=== PATIENT | male | born 1990 | race Caucasian/White ===

== ENCOUNTER 2017-08-25 01:24 | Emergency (ER) | payer BC ==
[~2017-08-25] VITALS: Ht 165.1 cm; Wt 89.2 kg
[2017-08-25 01:42] LABS: HEMATOCRIT 42.7 % (38.0-50.0); MCH 29.4 PG (29.0-34.0); MCHC 33.7 G/DL (30.0-36.0); MCV 87.1 FL (86-99); MEAN PLAT.VOLUME 10.2 uM^3 (9.0-12.4); PLATELET COUNT 253 K/uL (156-360); RBC DIS.WIDTH-CV 12.4 % (11.8-14.6); RBC DIS.WIDTH-SD 39.6 % (39-53); WHITE BLOOD COUNT 8.6 K/uL (4.1-10.2)
[2017-08-25 01:47] LABS: ADD MIUA? YES; BILIRUBIN NEGATIVE; BLOOD LARGE; COLOR YELLOW ((YELLOW)); GLUCOSE (STRIP) NEGATIVE; KETONES NEGATIVE; LEUKOCYTES TRACE; NITRITE NEGATIVE; PROTEIN (STRIP) NEGATIVE; UROBILINOGEN 0.2 MG/DL (0.2-1.0)
[2017-08-25 01:57] LABS: CHLORIDE 108 mEq/L (99-109); POTASSIUM 4.1 mEq/L (3.7-5.4); SODIUM 140 mEq/L (136-147)
[2017-08-25 01:58] LABS: GLUCOSE 107 mg/dL (70-99)
[2017-08-25 02:00] LABS: ANION GAP 10 MEQ/L (2-14)
[2017-08-25 02:02] LABS: GFR ESTIMATE (CALCULATED) > 59 mL/min/
[2017-08-25 02:03] LABS: UREA NITROGEN (BUN) 14 mg/dL (9-23)
[2017-08-25 02:13] LABS: BACTERIA NONE SEEN /HPF; EPITHELIAL CELLS NONE SEEN /HPF; MUCUS 1+ /LPF; RED BLOOD CELLS TNTC /HPF (0-5); UCUL ADDED? YES
[2017-08-25] MEDS ORDERED: ZOFRAN ODT4 MG PO (03:22)
[2017-08-25] MEDS ORDERED: PERCOCET 5/31 TABLET PO (03:22)
[2017-08-25 03:49] VITALS: BP 118/67
== END 2017-08-25 03:51 | disposition home or self-care (01) ==
LOC: EME 01:24
DX: N13.2 Hydronephrosis with renal and ureteral calculous obstruction (principal); Z72.0 Tobacco use
CPT/HCPCS: 74176; 80048; 81003; 85027; 87077; 87086; 87186; 99281; 99284; J1885